=== PATIENT | female | born 1960 | race Caucasian/White ===

== ENCOUNTER → 2016-10-22 | Outpatient (CLI) | payer SELFPAY ==
[2015-10-19 11:23] VITALS: BP 111/48
[~2016-10-22] MED LIST: NS 100 ML IV 100 ML IV ONE
[2016-10-22 09:48] LABS: CREATININE 0.81 mg/dL (0.55-1.02)
--- NOTE | 2016-10-23 09:32 | CT ---
HISTORY: Malignant neoplasm of thyroid. Nontoxic single thyroid nodule. Thyroid was removed. Patient noted a knot that came up on the right side of the neck a few months ago. CT big urine now has kayla en smaller. Study: CT soft tissue neck with IV contrast Comparison: No priors Technique: Multiple axial images of the soft tissue neck were obtained from skull base to the aortic arch during the administration of IV contrast. Sagittal and coronal reformats were performed and r eviewed. Dose reduction techniques utilized automatic exposure control. A metallic marker was placed at the level of patient's palpable knot in the right neck. Findings: The visualized portions of the posterior fossa and orbits are unremarkable in appearance. The parot id glands and submandibular glands are unremarkable in their IV contrasted appearance. The thyroid g land is surgically absent. The carotid space on the right and left is unremarkable. Just deep to t he metallic marker in the right neck there is a lymph node present measuring 8.6 x 16 millimeters. T his is present at the level 2 A lymph node chain on the right. Similar lymph nodes are present on th e left also within the level 2 A chain. The prevertebral and paraspinous regions are unremarkable. The nasopharynx, oropharynx, hypopharynx are unremarkable. The larynx appears symmetric. The vasc ular structures are unremarkable in their appearance. The aortic arch is unremarkable. The visuali zed portions of the mediastinum are unremarkable as well. The bony structures appear intact. The v isualized portions of the lung apex on the right and left are unremarkable as well. IMPRESSION: Bilateral level 2 A lymphadenopathy. Surgically absent thyroid gland. Reported By:
== END ==
LOC: RAD 09:27
PROVIDERS: ATTEND Physician Assistant
DX: C73 Malignant neoplasm of thyroid gland (principal); E04.1 Nontoxic single thyroid nodule
CPT/HCPCS: 36415; 70491; 82565; 84520

== ENCOUNTER → 2016-11-19 | Outpatient (CLI) | payer SELFPAY ==
[2015-10-19 11:23] VITALS: BP 111/48
--- NOTE | 2016-11-19 17:47 | US ---
History: History of thyroid cancer Study: Palpable lump right neck Findings: Real-time images of the neck were obtained. The patient is reportedly status post right thyroid lobectomy. It is reported that a portion of the l eft thyroid lobe remains. There is a 0.7 x 0.6 x 1.4 cm soft tissue density in the left thyroid bed which probably represents r esidual thyroid. No discrete lymphadenopathy on the left is seen. No discrete thyroid tissue on the right is evident. No obvious cervical lymphadenopathy is seen. CT o f the neck with IV contrast would be useful for further delineation or alternatively PET-CT could be performed if there is clinically a high index of recurrent disease Impression: 1. Apparent small residual left thyroid lobe without surrounding adenopathy. 2. No discrete residual right thyroid is seen. No obvious lymphadenopathy is evident. CT of the neck with IV contrast or alternatively PET CT could be useful for further delineation. Reported By:
== END ==
LOC: RAD 11:35
PROVIDERS: ATTEND Physician Assistant
DX: E04.1 Nontoxic single thyroid nodule (principal); E89.0 Postprocedural hypothyroidism; C73 Malignant neoplasm of thyroid gland
CPT/HCPCS: 76536

== ENCOUNTER → 2017-04-01 | Outpatient (CLI) | payer SELFPAY ==
[2015-10-19 11:23] VITALS: BP 111/48
--- NOTE | 2017-04-01 15:02 | US ---
HISTORY: Left breast lump, previous biopsy at similar location Bilateral digital diagnostic mammography with CAD and left breast ultrasound. Comparison: Multiple previous exams dating back to July 16, 2014 FINDINGS: Mammogram: Bilateral CC and MLO projections of the right and left breast were obtained. Scattered fi broglandular tissue is seen to be present without significant interval change. No new or developing suspicious architectural distortion, mass or clustered microcalcifications can be observed to suggest malignancy. No skin thickening or nipple retraction is appreciated. No pathological lymphadenopat hy can be identified. There is stable focal asymmetry in the upper outer quadrant left breast at mid to posterior depth in the region of the palpation marker. Also noted is a stable sub cm benign-appear ing nodule in the lower outer left breast at mid to posterior depth. Ultrasound: Multiple grayscale and color Doppler images of the region of interest were obtained at 1 o'clock approximately 5 cm from the nipple where there is an overall stable dense band of fibrocystic breast parenchyma without a suspicious cystic or solid nodule identified. There is posterior acousti earl enhancement with no suspicious internal vascularity. IMPRESSION: NO RADIOGRAPHIC EVIDENCE OF MALIGNANCY. ACR CATEGORY 2 - benign findings. FOLLOW-UP EXAM 1 YEAR. Diagnostic CAD was utilized and reviewed. * 0 (ZERO) - ASSESSMENT INCOMPLETE; ADDITIONAL IMAGING IS NEEDED. * 1/1 (ONE) - NEGATIVE. * 2/II (TWO) - BENIGN FINDINGS. * 3/III (THREE) - PROBABLY BENIGN FINDING; SHORT INTERVAL FOLLOW-UP SUGGESTED. * 4/IV (FOUR) - SUSPICIOUS ABNORMALITY; BIOPSY SHOULD BE CONSIDERED. * 5/V - HIGHLY SUSPICIOUS OF MALIGNANCY; BIOPSY SHOULD BE PERFORMED. A NEGATIVE X-RAY REPORT SHOULD NOT DELAY BIOPSY IF A DOMINANT OR CLINICALLY SUSPICIOUS MASS IS PRESENT; 4 TO 8 PERCENT OF CANCERS ARE NOT IDENTIFIED BY X-RAY. A NEGA TIVE REPORT MAY REINFORCE THE CLINICAL IMPRESSION. ADENOSIS AND DENSE BREASTS MAY OBSCURE AN UNDERLY ING NEOPLASM. Reported By:
== END ==
LOC: RAD 09:32
PROVIDERS: ATTEND Family Medicine
DX: N64.89 Other specified disorders of breast (principal); R92.8 Other abnormal and inconclusive findings on diagnostic imaging of breast; N64.59 Other signs and symptoms in breast; N64.4 Mastodynia
CPT/HCPCS: 76642; 77066